=== PATIENT | male | born 1990 | race Two or more races ===

== ENCOUNTER 2023-02-15 11:51 | Emergency (ER) | payer MEDICAID ==
[~2023-02-15] VITALS: Ht 165.1 cm; Wt 94.2 kg
[2023-02-15 16:30] VITALS: BP 118/64
== END 2023-02-15 17:30 | disposition home or self-care (01) ==
LOC: ER 11:51
DX: R19.00 Intra-abdominal and pelvic swelling, mass and lump, unspecified site (principal)
CPT/HCPCS: 74176